=== PATIENT | male | born 1995 | race Two or more races ===

== ENCOUNTER 2021-06-03 16:34 | Emergency (ER) | payer OTHER, SELFPAY ==
[2021-06-03 16:52] VITALS: BP 144/76; PULSE 88; RESP 16; TEMP 37.1; O2SAT 100; BMI 25.0
--- NOTE | 2021-06-03 17:59 | ED.EXTPRO ---
HPI - Extremity Problem General Chief complaint: Extremity Problem Stated complaint: big toes numb on both feet Time Seen by Provider: 06/03/21 17:17 Source: patient Mode of arrival: ambulatory Limitations: no limitations History of Present Illness HPI Narrative: 26 y/o male presenting to the ER with bilateral great toe numbness this started 2 days ago. 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 He states he was on his hands and knees for the entire day on when he stood up he reports he had new onset of bilateral great toe numbness. He reports his toes were bent in the shoes for several hours on that day. He has had a weird sensation and numbness in the great toes since then. The right great toe is getting better with time but the left great toe is the same. He is able to move all digits. He is able to feel when you touch but he said it feels weird. He denies any paresthesias of the upper extremities. MD Complaint: other ( Paresthesias of the great toes.) Onset (ago): day(s) (2) Pain Consistency: constant Location: left, right and other ( Great toes) Quality: other Radiation: none Relieving factors: nothing Exacerbating factors: nothing Associated symptoms: denies other symptoms Related Data Previous Rx's Medication Instructions Recorded naproxen 500 mg tablet 500 mg PO BID PRN #20 tab 06/03/21 Allergies Allergy/AdvReac Type Severity Reaction Status Date / Time No Known Allergies Allergy Verified 06/03/21 16:52 Review of Systems Review of Systems: Constitutional: No Fever, No Chills Cardiovascular: No Chest Pain, No SOB Gastrointestinal: No Nausea, No Vomiting Musculoskeletal: No joint pain, No Myalgias Skin: No Skin Lesions, No rash Neuro: No Weakness, + Numbness, No Dizziness, No Headache Psych: + Anxiety/Panic, No Depression Heme/Lymph: No Bruising, No Lymphadenopathy PMFSH Past Medical History Medical History (Updated 06/03/21 @ 18:[address]) No known health problems Social History Social History Advance Directives: No Advance Directives Information Provided: No Physical Exam Vital Signs: Vital Signs: Last Vital Signs Temp 98.8 F 06/03/21 16:52 Pulse 88 06/03/21 16:52 Resp 16 06/03/21 16:52 BP 144/76 H 06/03/21 16:52 Pulse Ox 100 06/03/21 16:52 BMI result Body Mass Index 25.0 Appearance: Alert. Oriented X3. No acute distress. HEENT: normal inspection CVS: Normal heart rate and rhythm. Pulses normal. Respiratory: No respiratory distress. Skin: Skin warm and dry. Normal skin color. Normal skin turgor. No rashes. Extremities: normal inspection the bilateral feet. Normal range of motion of all of the toes. Reported subjective sensory deficit to bilateral great toes left greater than right. Neurovascularly intact. Warm and well perfused. Light and sharp touch are intact. Neuro: Oriented X 3. No motor deficit. No sensory deficit. Normal gait. Course Course Course Narrative: 26-year-old male presents to the ER with bilateral great toe numbness after being in a kneeling position with his toes hyper extended for several hours. Symptoms are most likely due to a nerve compression and will get better with time. Patient was counseled on this and was encourage follow-up with his primary care doctor. He has no other neurological findings. Will prescribe anti-inflammatory and have him follow-up with his PCP. Patient agrees with plan. Discharge Plan Discharge Clinical Impression: Numbness of toes Patient Disposition: Home, Self-Care Instructions: Paresthesia (ED) Additional Instructions: Take the prescribed medication two times per day - take with food. Rest. Try to stay off of your feet for the next 2 days. Follow up with your doctor if no improvement or worsening symptoms develop. Prescriptions: New naproxen 500 mg tablet 500 mg PO BID PRN (Reason: pain) Qty: 20 0RF
== END 2021-06-03 18:22 | disposition home or self-care (01) ==
LOC: HO.ED 18:09
PROVIDERS: Emergency Provider Internal Medicine
DX: R20.2 Paresthesia of skin (principal)
CPT/HCPCS: 99283